=== PATIENT | female | born 1980 | race Caucasian/White ===

== ENCOUNTER 2019-09-20 01:23 | Emergency (ER) | payer OTHER ==
[2019-09-20 01:27] VITALS: TEMP 98.3; BMI 42.7
--- NOTE | 2019-09-20 01:34 | PDOC ---
History of Present Illness - General Chief Complaint: Chest Pain Stated Complaint: ABD, BACK AND CHEST PAIN Time Seen by Provider: 09/20/19 01:33 - History of Present Illness Initial Comments: 09/20/19 01:50 39-year-old obese female complaining of chest and back pain, heaviness since earlier. Patient reports 3 similar episodes in the last week. Patient today took Gas-X advised by pharmacist with no significant improvement in pain. Patient also reports slight nausea. Denies heavy lifting, fever/chills, cough, shortness of breath. patient reports that 3 times she had pain is after eating food. No past medical history 09/20/19 02:26 Past History - Medical History Allergies/Adverse Reactions: Allergies Allergy/AdvReac Type Severity Reaction Status Date / Time shellfish derived Allergy Intermediate Difficulty Verified 09/20/19 01:27 Breathing Home Medications: Ambulatory Orders NK [No Known Home Medication] 09/20/19 Asthma: Yes Cancer: No Cardiac Disorders: No COPD: No Diabetes: No HTN: No Seizures: No Thyroid Disease: No - Reproductive History Spontaneous : 3 - Immunization History Td Vaccination: Yes TDAP Vaccination: Yes Immunization Up to Date: Yes - Psycho-Social/Smoking History Smoking Status: Yes Smoking History: Never smoked Have you smoked in the past 12 months: No Number of Cigarettes Smoked Daily: 0 - Substance Abuse Hx (Audit-C & DAST Scrn) How often the patient has a drink containing alcohol: Never Score: In Men: 4 or > Positive; In Women: 3 or > Positive: 0 Screen Result (Pos requires Nsg. Audit-10AR): Negative In the last yr the pt used illegal drug/Rx for NonMed reason: No Score: Yes response is considered Positive: 0 Screen Result (Positive result requires Nsg. DAST-10): Negative Review of Systems - Review of Systems Able to Perform ROS?: Yes Is the patient limited Chinese proficient: No Constitutional: No: Symptoms Reported, See HPI, Chills, Diaphoresis, Fever, Loss of Appetite, Malaise, Night Sweats, Weakness, Weight Stable, Unintentional Wgt. Loss, Unexplained wgt Loss, Other HEENTM: No: Symptoms Reported, See HPI, Eye Pain, Blurred Vision, Tearing, Recent change in vision, Double Vision, Cataracts, Ear Pain, Ocular Prothesis, Ear Discharge, Nose Pain, Nose Congestion, Tinnitus, Nose Bleeding, Hearing Loss, Throat Pain, Throat Swelling, Mouth Pain, Dental Problems, Difficulty Swallowing, Mouth Swelling, Other Respiratory: No: Symptoms reported, See HPI, Cough, Orthopnea, Shortness of Breath, SOB with Exertion, SOB at Rest, Stridor, Wheezing, Productive cough, Hemoptysis, Other Cardiac (ROS): Yes: Chest Pain. No: Symptoms Reported, See HPI, Edema, Irregular Heart Rate, Lightheadedness, Palpitations, Syncope, Chest Tightness, Other ABD/GI: Yes: Nausea *Physical Exam - Vital Signs Last Vital Signs Temp Pulse Resp BP Pulse Ox 98.3 F 82 18 139/78 99 09/20/19 01:24 09/20/19 01:24 09/20/19 01:24 09/20/19 01:09/20/19 01:24 - Physical Exam General Appearance: Yes: Appropriately Dressed Respiratory/Chest: positive: Chest Tender (mild reproducible pain), Lungs Clear, Normal Breath Sounds Cardiovascular: positive: Regular Rhythm, Regular Rate Gastrointestinal/Abdominal: positive: Normal Bowel Sounds, Tender (both upper abdominal tenderness), Soft Musculoskeletal: positive: Normal Inspection Extremity: positive: Normal Capillary Refill, Normal Inspection, Normal Range of Motion, Pelvis Stable Integumentary: positive: Normal Color, Dry, Warm Neurologic: positive: Fully Oriented, Alert, Normal Mood/Affect Heart Score/ECG Review - History History: Slightly suspicious - Electrocardiogram EKG: Normal - Risk Factors Risk Factors Heart Score: Yes Hx Obesity Based on the list above the patient has:: 1-2 risk factors - Troponin Troponin: </= normal limit - ECG Intrepretation Rhythm: Regular Rhythm Comment:: 09/20/19 04:22 NSR ED Treatment Course - LABORATORY CBC & Chemistry Diagram: 09/20/19 02:00 09/20/19 02:00 Medical Decision Making - Medical Decision Making 09/20/19 01:52 A: chest pain/ upper abdominal pain P: labs EKG chest xray aspirin 09/20/19 02:26 09/20/19 04:20 POCUS abdomen done by Dr. gutierrez/: no gall bladder thickening, no stones, CBD wnl. LFTS, lipase wnl. patient is feeling better after zofran. will do 2nd troponin 09/20/19 06:18 Discharge - Discharge Information Problems reviewed: Yes Clinical Impression/Diagnosis: Nausea Chest pain Qualifiers: Chest pain type: unspecified Qualified Code(s): R07.9 - Chest pain, unspecified Disposition: HOME - Follow up/Referral - Patient Discharge Instructions Patient Printed Discharge Instructions: DI for Atypical Chest Pain Additional Instructions: Avoid gas producing food. Drink plenty of fluids. Follow-up with your primary doctor. Return to the emergency room for any worsening symptoms - Post Discharge Activity Work/Back to School Note: Back to Work
[2019-09-20] MEDS ORDERED: ASPIRIN 81 MG CHEWABLE TABLETS PO ONE (01:42)
[2019-09-20] MEDS ORDERED: ASPIRIN 81 MG CHEWABLE TABLETS ONE (01:47)
--- NOTE | 2019-09-20 01:51 | PDOC ---
*Physical Exam - Vital Signs Last Vital Signs Temp Pulse Resp BP Pulse Ox 98.3 F 82 18 139/78 99 09/20/19 01:24 09/20/19 01:24 09/20/19 01:24 09/20/19 01:24 09/20/19 01:24 ED Treatment Course - LABORATORY CBC & Chemistry Diagram: 09/20/19 02:00 09/20/19 02:00 - Medications Given in the ED: ED Medications Discontinued Medications Generic Name Dose Route Start Last Admin Trade Name Gaudencio PRN Reason Stop Dose Admin Aspirin 162 mg 09/20/19 01:42 09/20/19 01:49 Asa - PO 09/20/19 01:43 162 mg ONCE ONE Administration Medical Decision Making - Medical Decision Making 09/20/19 01:51 Patient seen by the advanced practice provider under my supervision. Ancillary testing reviewed as necessary. I agree with plan as outlined by the advanced practice provider. Discharge - Discharge Information Problems reviewed: Yes Clinical Impression/Diagnosis: Nausea Chest pain Qualifiers: Chest pain type: unspecified Qualified Code(s): R07.9 - Chest pain, unspecified Disposition: HOME - Follow up/Referral - Patient Discharge Instructions Patient Printed Discharge Instructions: DI for Atypical Chest Pain Additional Instructions: Avoid gas producing food. Drink plenty of fluids. Follow-up with your primary doctor. Return to the emergency room for any worsening symptoms - Post Discharge Activity Work/Back to School Note: Back to Work
[2019-09-20] MEDS ORDERED: ONDANSETRON 4 MG/2 ML VIAL IVPUSH ONE (01:59)
[2019-09-20 02:19] LABS: BASO % 0.7 % (0-2.0); EOS % 3.8 % (0-4.5); HEMATOCRIT 40.3 % (32.4-45.2); HEMOGLOBIN 13.5 GM/dL (10.7-15.3); MCH 28.9 pg (25.7-33.7); MCHC 33.6 g/dl (32.0-36.0); MEAN CELL VOLUME 86.1 fl (80-96); MEAN PLT VOLUME 8.9 fl (7.5-11.1); MONO % 7.7 % (3.8-10.2); NEUT % 53.8 % (42.8-82.8); PLATELET COUNT 303 K/MM3 (134-434); RBC 4.68 M/mm3 (3.60-5.2); RDW 14.8 % (11.6-15.6); WHITE BLOOD COUNT 10.3 K/mm3 (4.0-10.0)
[2019-09-20 02:32] LABS: INR 1.03 (0.83-1.09); PROTHROMBIN TIME (PATIENT) 12.1 SEC (9.7-13.0)
[2019-09-20 02:34] LABS: ACTIVATED PTT 32.6 SECONDS (25.2-36.5)
[2019-09-20 02:46] LABS: ALBUMIN 3.8 g/dl (3.4-5.0); ALK PHOS 89 U/L (45-117); ANION GAP 7 MMOL/L (8-16); BILIRUBIN,TOTAL 0.3 mg/dL (0.2-1); BLOOD UREA NITROGEN 11.3 mg/dL (7-18); CALCIUM 9.4 mg/dL (8.5-10.1); CHLORIDE 104 mmol/L (98-107); CO2 29 mmol/L (21-32); GLUCOSE,RANDOM 109 mg/dL (74-106); SGOT/AST 20 U/L (15-37); SGPT/ALT 23 U/L (13-61); SODIUM 140 mmol/L (136-145); TOT PROT 7.2 g/dl (6.4-8.2)
[2019-09-20 03:06] LABS: URINE APPEARANCE CLEAR; URINE BILIRUBIN NEGATIVE (NEGATIVE); URINE COLOR YELLOW; URINE GLUCOSE (UA) NEGATIVE (NEGATIVE); URINE KETONE NEGATIVE (NEGATIVE); URINE LEUK ESTERASE NEGATIVE (NEGATIVE); URINE NITRITE NEGATIVE (NEGATIVE); URINE PROTEIN NEGATIVE (NEGATIVE); URINE UROBILINOGEN 0.2 mg/dL (0.2-1.0)
[2019-09-20 03:19] LABS: LIPASE 190 U/L (73-393)
[2019-09-20 05:12] VITALS: BP 109/57; PULSE 68
--- NOTE | 2019-09-20 10:39 | EKG ---
Test Reason : Blood Pressure : / mmHG Vent. Rate : 067 BPM Atrial Rate : 067 BPM P-R Int : 174 ms QRS Dur : 090 ms QT Int : 410 ms P-R-T Axes : 039 059 033 degrees QTc Int : 433 ms NORMAL SINUS RHYTHM NORMAL ECG WHEN COMPARED WITH ECG OF 20-SEP-2019 02:01, NO SIGNIFICANT CHANGE WAS FOUND Confirmed by MD Ruelas Daniel ([id number]) on 09/20/2019 10:38:49 AM Referred By: Confirmed By:Javi Ruelas MD
== END 2019-09-20 06:02 | disposition home or self-care (01) ==
LOC: JER 01:23
PROC: 3E033GC Introduction of Other Therapeutic Substance into Peripheral Vein, Percutaneous Approach (ICD-10-PCS; principal; 2019-09-20)
DX: R07.9 Chest pain, unspecified (principal); R11.0 Nausea
CPT/HCPCS: 36415; 71046-TC-FY; 80053; 81003; 82550; 82553; 83690; 83735; 84484; 84703; 85025; 85610; 85730; 93005; 93010; 99285-25

== ENCOUNTER 2020-01-26 16:09 | Inpatient (IN) | payer OTHER ==
[2020-01-26] MEDS ORDERED: SODIUM CHLORIDE 0.9% 500 ML INFUS.BAG IV ONE (17:54)
[2020-01-26] MEDS ORDERED: morphine CARPU-JECT 4 MG/1 ML DISP.SYRIN IVPUSH ONE ×2 (17:54→22:36)
[2020-01-26] MEDS ORDERED: METOCLOPRAMIDE HCL INJECTION 10 MG/2 ML VIAL IVPUSH ONE (17:54)
[2020-01-26 18:31] LABS: EPI CELLS 8 /uL (0-25.1); HCG,QUALITATIVE URINE Negative; HYALINE CASTS 0 /uL (0-3.1); URINE APPEARANCE CLEAR; URINE BACTERIA 190 /uL (0-1359); URINE BILIRUBIN NEGATIVE (NEGATIVE); URINE COLOR YELLOW; URINE GLUCOSE (UA) NEGATIVE (NEGATIVE); URINE KETONE NEGATIVE (NEGATIVE); URINE LEUK ESTERASE NEGATIVE (NEGATIVE); URINE NITRITE NEGATIVE (NEGATIVE); URINE PROTEIN NEGATIVE (NEGATIVE); URINE RBC 192 /uL (0-23.9); URINE UROBILINOGEN 0.2 mg/dL (0.2-1.0); URINE WBC 6 /uL (0-25.8)
[2020-01-26] MEDS ORDERED: METOCLOPRAMIDE HCL INJECTION 10 MG/2 ML VIAL ONE (18:36)
[2020-01-26] MEDS ORDERED: morphine SULFATE 4 MG/ML VIAL ONE (18:36)
[2020-01-26 19:13] LABS: BASO % 0.2 % (0-2.0); EOS % 2.6 % (0-4.5); HEMATOCRIT 39.5 % (32.4-45.2); HEMOGLOBIN 13.3 GM/dL (10.7-15.3); LYMPH % 19.1 % (8-40); MCH 28.9 pg (25.7-33.7); MCHC 33.6 g/dl (32.0-36.0); MEAN CELL VOLUME 85.9 fl (80-96); MEAN PLT VOLUME 9.1 fl (7.5-11.1); MONO % 6.6 % (3.8-10.2); NEUT % 71.5 % (42.8-82.8); PLATELET COUNT 326 K/MM3 (134-434); RBC 4.59 M/mm3 (3.60-5.2); RDW 14.2 % (11.6-15.6); WHITE BLOOD COUNT 11.8 K/mm3 (4.0-10.0)
[2020-01-26 19:35] LABS: CHLORIDE 105 mmol/L (98-107); POTASSIUM 4.2 mmol/L (3.5-5.1); SODIUM 140 mmol/L (136-145)
[2020-01-26 19:37] LABS: ALBUMIN 3.7 g/dl (3.4-5.0); ANION GAP 5 MMOL/L (8-16); BLOOD UREA NITROGEN 11.4 mg/dL (7-18); CO2 29 mmol/L (21-32); GLUCOSE,RANDOM 84 mg/dL (74-106); LIPASE 150 U/L (73-393)
[2020-01-26 19:40] LABS: CREATININE 0.9 mg/dL (0.55-1.3); SGOT/AST 16 U/L (15-37); SGPT/ALT 22 U/L (13-61)
[2020-01-26 19:42] LABS: BILIRUBIN,TOTAL 0.4 mg/dL (0.2-1); TOT PROT 7.2 g/dl (6.4-8.2)
[2020-01-26 19:43] LABS: ALK PHOS 75 U/L (45-117)
[2020-01-26] MEDS ORDERED: CEFTRIAXONE 1,000 MG in DEXTROSE 5%-WATER - 50 ML IVPB ONE (22:00)
[2020-01-26] MEDS ORDERED: CEFTRIAXONE 1 GM/50 ML BAG ONE (22:09)
[2020-01-26] MEDS ORDERED: MORPHINE SULFATE 2 MG/ML VIAL ONE (22:46)
[2020-01-27] MEDS ORDERED: morphine SULFATE 4 MG/ML VIAL IVPUSH PRN (00:29)
[2020-01-27] MEDS ORDERED: LACTATED RINGERS SOLUTION 1,000 ML IV SCH (00:30)
[2020-01-27] MEDS: SODIUM CHLORIDE 1,000 ML IV SCH (00:47)
[2020-01-27] MEDS ORDERED: METOCLOPRAMIDE HCL INJECTION 10 MG/2 ML VIAL IVPUSH PRN (02:00)
[2020-01-27] MEDS ORDERED: MORPHINE SULFATE 2 MG/ML VIAL ONE (04:57)
[2020-01-27] MEDS: MORPHINE SULFATE 2 MG/ML VIAL IVPUSH PRN (05:00)
[2020-01-27 06:12] LABS: HEMATOCRIT 37.7 % (32.4-45.2); HEMOGLOBIN 12.6 GM/dL (10.7-15.3); MCH 28.4 pg (25.7-33.7); MCHC 33.4 g/dl (32.0-36.0); MEAN PLT VOLUME 8.4 fl (7.5-11.1); PLATELET COUNT 287 K/MM3 (134-434); RBC 4.43 M/mm3 (3.60-5.2); RDW 14.2 % (11.6-15.6); WHITE BLOOD COUNT 9.9 K/mm3 (4.0-10.0)
[2020-01-27 06:46] LABS: POTASSIUM 3.9 mmol/L (3.5-5.1)
[2020-01-27 06:48] LABS: CALCIUM 8.3 mg/dL (8.5-10.1)
[2020-01-27 06:49] LABS: ALBUMIN 3.2 g/dl (3.4-5.0); BLOOD UREA NITROGEN 8.1 mg/dL (7-18); MAGNESIUM 1.9 mg/dL (1.8-2.4)
[2020-01-27 06:51] LABS: CREATININE 0.8 mg/dL (0.55-1.3)
[2020-01-27 06:52] LABS: PHOSPHOROUS 3.4 mg/dL (2.5-4.9)
[2020-01-27 06:53] LABS: BILIRUBIN,TOTAL 0.5 mg/dL (0.2-1); TOT PROT 6.4 g/dl (6.4-8.2)
[2020-01-27] MEDS ORDERED: ENOXAPARIN NA (PORCINE) 40 MG/0.4 ML DISP.SYRIN SQ ONE (08:46)
[2020-01-27] MEDS: ENOXAPARIN NA (PORCINE) 40 MG/0.4 ML DISP.SYRIN SQ SCH (09:32)
[2020-01-27 12:59] LABS: POTASSIUM 3.8 mmol/L (3.5-5.1)
[2020-01-27 13:01] LABS: BLOOD UREA NITROGEN 7.8 mg/dL (7-18)
[2020-01-27 13:04] LABS: CREATININE 0.7 mg/dL (0.55-1.3)
[2020-01-27] MEDS ORDERED: cefTRIAXone SODIUM 1 GM VIAL ONE (18:44)
[2020-01-27] MEDS ORDERED: DEXTROSE 5%-WATER - 50 ML IVPB ONE (18:45)
[2020-01-27] MEDS: CEFTRIAXONE 1 GM in DEXTROSE 5%-WATER - 50 ML IVPB SCH (18:48)
[2020-01-27] MEDS: MONTELUKAST NA 10 MG TABLET PO SCH (21:10)
[2020-01-28] MEDS: MORPHINE SULFATE 2 MG/ML VIAL IVPUSH PRN ×2 (00:01→22:09)
[2020-01-28] MEDS: SODIUM CHLORIDE 1,000 ML IV SCH ×2 (00:30→22:12)
[2020-01-28 07:14] LABS: BASO % 0.4 % (0-2.0); EOS % 2.7 % (0-4.5); HEMATOCRIT 36.5 % (32.4-45.2); HEMOGLOBIN 12.3 GM/dL (10.7-15.3); LYMPH % 20.2 % (8-40); MCH 28.6 pg (25.7-33.7); MCHC 33.9 g/dl (32.0-36.0); MEAN CELL VOLUME 84.6 fl (80-96); MEAN PLT VOLUME 8.7 fl (7.5-11.1); MONO % 8.2 % (3.8-10.2); NEUT % 68.5 % (42.8-82.8); PLATELET COUNT 311 K/MM3 (134-434); RBC 4.31 M/mm3 (3.60-5.2); RDW 13.8 % (11.6-15.6); WHITE BLOOD COUNT 9.8 K/mm3 (4.0-10.0)
[2020-01-28] MEDS ORDERED: cefTRIAXone SODIUM 1 GM VIAL ONE (09:30)
[2020-01-28] MEDS ORDERED: DEXTROSE 5%-WATER - 50 ML IVPB ONE (09:32)
[2020-01-28] MEDS: CEFTRIAXONE 1 GM in DEXTROSE 5%-WATER - 50 ML IVPB SCH (09:34)
[2020-01-28] MEDS: ENOXAPARIN NA (PORCINE) 40 MG/0.4 ML DISP.SYRIN SQ SCH (09:34)
[2020-01-28] MEDS ORDERED: SODIUM CHLORIDE NASAL SPRAY 44 ML BOTTLE NS ONE (19:40)
[2020-01-28] MEDS: MONTELUKAST NA 10 MG TABLET PO SCH (22:11)
[2020-01-29 06:58] LABS: BASO % 0.4 % (0-2.0); EOS % 2.7 % (0-4.5); HEMATOCRIT 36.6 % (32.4-45.2); HEMOGLOBIN 12.3 GM/dL (10.7-15.3); LYMPH % 21.9 % (8-40); MCH 28.3 pg (25.7-33.7); MCHC 33.6 g/dl (32.0-36.0); MEAN CELL VOLUME 84.4 fl (80-96); MEAN PLT VOLUME 8.5 fl (7.5-11.1); MONO % 7.7 % (3.8-10.2); NEUT % 67.3 % (42.8-82.8); PLATELET COUNT 335 K/MM3 (134-434); RBC 4.33 M/mm3 (3.60-5.2); RDW 13.6 % (11.6-15.6); WHITE BLOOD COUNT 9.2 K/mm3 (4.0-10.0)
[2020-01-29] MEDS ORDERED: cefTRIAXone SODIUM 1 GM VIAL ONE (08:55)
[2020-01-29] MEDS ORDERED: DEXTROSE 5%-WATER - 50 ML IVPB ONE (08:56)
[2020-01-29] MEDS: CEFTRIAXONE 1 GM in DEXTROSE 5%-WATER - 50 ML IVPB SCH (09:28)
[2020-01-29] MEDS ORDERED: PROPOFOL 20 ML ONE ×2 (14:13)
[2020-01-29] MEDS ORDERED: SUCCINYLCHOLINE CHLORIDE 200 MG/10 ML SYRINGE ONE (14:13)
[2020-01-29] MEDS ORDERED: MIDAZOLAM HCL 2 MG/2 ML SINGLE DOSE VIAL ONE (14:13)
[2020-01-29] MEDS ORDERED: fentaNYL CITRATE 250 MCG/5 ML VIAL ONE (14:13)
[2020-01-29] MEDS ORDERED: ROCURONIUM BROMIDE 50 MG/5 ML SYRINGE ONE ×2 (14:13→16:15)
[2020-01-29] MEDS ORDERED: DEXAMETHASONE SOD PHOSPHATE 4 MG/1 ML VIAL ONE (15:03)
[2020-01-29] MEDS ORDERED: BUPIVACAINE HCL/PF 0.5% (5 MG/ML) 30 ML VIAL IJ ONE (15:10)
[2020-01-29] MEDS: ENOXAPARIN NA (PORCINE) 40 MG/0.4 ML DISP.SYRIN SQ SCH (15:27)
[2020-01-29 15:31] VITALS: BMI 44.2
[2020-01-29] MEDS ORDERED: METOPROLOL TARTRATE 5 MG/5 ML VIAL ONE (16:23)
[2020-01-29] MEDS ORDERED: ONDANSETRON 4 MG/2 ML VIAL IVPUSH PRN ×2 (17:02→17:12)
[2020-01-29] MEDS ORDERED: NEOSTIGMINE METHYLSULFATE 0.5 MG/ML - 10 ML MDV ONE (17:04)
[2020-01-29] MEDS ORDERED: LACTATED RINGERS SOLUTION 1,000 ML IV SCH (17:15)
[2020-01-29] MEDS ORDERED: oxyCODONE HCL 5 MG TABLET PO PRN (17:29)
[2020-01-29] MEDS ORDERED: ACETAMINOPHEN INJECTION 100 ML IVPB ONE (17:40)
[2020-01-29] MEDS: ACETAMINOPHEN 1000 MG/100 ML VIAL (NON FORMULARY) IVPB PRN (17:45)
[2020-01-29] MEDS: SODIUM CHLORIDE 1,000 ML IV SCH ×3 (17:45→21:14)
[2020-01-29] MEDS: MORPHINE SULFATE 2 MG/ML VIAL IVPUSH PRN (21:31)
[2020-01-29] MEDS: MONTELUKAST NA 10 MG TABLET PO SCH (21:31)
[2020-01-30] MEDS: MORPHINE SULFATE 2 MG/ML VIAL IVPUSH PRN ×2 (04:42→10:07)
[2020-01-30] MEDS: SODIUM CHLORIDE 1,000 ML IV SCH (06:16)
[2020-01-30 08:52] LABS: BASO % 0.1 % (0-2.0); HEMATOCRIT 35.2 % (32.4-45.2); LYMPH % 7.5 % (8-40); MCH 28.5 pg (25.7-33.7); MEAN CELL VOLUME 83.9 fl (80-96); MEAN PLT VOLUME 8.4 fl (7.5-11.1); MONO % 5.3 % (3.8-10.2); NEUT % 87.1 % (42.8-82.8); PLATELET COUNT 358 K/MM3 (134-434); RDW 13.7 % (11.6-15.6); WHITE BLOOD COUNT 12.1 K/mm3 (4.0-10.0)
[2020-01-30] MEDS ORDERED: cefTRIAXone SODIUM 1 GM VIAL ONE (09:08)
[2020-01-30] MEDS ORDERED: DEXTROSE 5%-WATER - 50 ML IVPB ONE (09:08)
[2020-01-30 09:14] LABS: POTASSIUM 4.2 mmol/L (3.5-5.1)
[2020-01-30 09:17] LABS: BLOOD UREA NITROGEN 7.4 mg/dL (7-18); CALCIUM 8.4 mg/dL (8.5-10.1)
[2020-01-30 09:21] LABS: CREATININE 0.7 mg/dL (0.55-1.3); PHOSPHOROUS 2.8 mg/dL (2.5-4.9)
[2020-01-30] MEDS ORDERED: CEFTRIAXONE 1 GM in DEXTROSE 5%-WATER - 50 ML IVPB SCH (09:30)
[2020-01-30] MEDS: ENOXAPARIN NA (PORCINE) 40 MG/0.4 ML DISP.SYRIN SQ SCH (09:35)
[2020-01-30] MEDS: ACETAMINOPHEN 1000 MG/100 ML VIAL (NON FORMULARY) IVPB PRN (21:03)
[2020-01-30] MEDS: MONTELUKAST NA 10 MG TABLET PO SCH (21:22)
[2020-01-31 08:02] LABS: HEMATOCRIT 34.1 % (32.4-45.2); HEMOGLOBIN 11.5 GM/dL (10.7-15.3); MCHC 33.8 g/dl (32.0-36.0); MEAN CELL VOLUME 85.8 fl (80-96); MEAN PLT VOLUME 8.6 fl (7.5-11.1); PLATELET COUNT 350 K/MM3 (134-434); RBC 3.97 M/mm3 (3.60-5.2); RDW 14.2 % (11.6-15.6); WHITE BLOOD COUNT 10.1 K/mm3 (4.0-10.0)
[2020-01-31 08:19] LABS: POTASSIUM 3.9 mmol/L (3.5-5.1)
[2020-01-31 08:40] LABS: ALBUMIN 2.9 g/dl (3.4-5.0)
[2020-01-31 08:41] LABS: BLOOD UREA NITROGEN 10.8 mg/dL (7-18)
[2020-01-31 08:42] LABS: CALCIUM 8.6 mg/dL (8.5-10.1)
[2020-01-31 08:43] LABS: BILIRUBIN,TOTAL 0.3 mg/dL (0.2-1); CREATININE 0.7 mg/dL (0.55-1.3); PHOSPHOROUS 3.4 mg/dL (2.5-4.9)
[2020-01-31] MEDS: ACETAMINOPHEN 1000 MG/100 ML VIAL (NON FORMULARY) IVPB PRN (09:30)
[2020-01-31] MEDS: ENOXAPARIN NA (PORCINE) 40 MG/0.4 ML DISP.SYRIN SQ SCH (09:31)
[2020-01-31 10:23] VITALS: BP 123/71; PULSE 97; TEMP 97.9
== END 2020-01-31 12:56 | disposition home or self-care (01) | DRG 263 ==
LOC: JER 16:09 → JERBED 22:12 → J7W 01-27 11:50 → J5S 01-29 20:43
PROVIDERS: ADMIT Family Medicine; ATTEND Internal Medicine
PROC: 0FT44ZZ Resection of Gallbladder, Percutaneous Endoscopic Approach (ICD-10-PCS; principal; 2020-01-29 15:08)
DX: K80.12 Calculus of gallbladder with acute and chronic cholecystitis without obstruction (principal); Z68.44 Body mass index [BMI] 60.0-69.9, adult; E66.9 Obesity, unspecified; D72.829 Elevated white blood cell count, unspecified; K82.1 Hydrops of gallbladder; J45.909 Unspecified asthma, uncomplicated; R10.11 Right upper quadrant pain
CPT/HCPCS: 36415; 71045-TC-FY; 76705-TC; 80048; 80053; 81003; 83690; 83735; 84100; 84484; 84703; 85025; 85027; 86850; 86900; 86901; 88304-TC; 93005; 93010; 93306-TC; 94760; 99285-25; C9803; J0131; U0003

== ENCOUNTER 2021-12-25 03:36 | Emergency (ER) | payer OTHER ==
[2021-12-25 03:42] VITALS: BP 128/84; PULSE 90; RESP 20; TEMP 97.8; BMI 44.7
[2021-12-25] MEDS ORDERED: ALBUTEROL SO4 2.5/IPRATROPIUM 0.5 INH SOL 3 ML VIAL.NEB. NEB ONE ×3 (04:02→04:15)
[2021-12-25] MEDS ORDERED: methylPREDNISolone NA SUCC 125 MG/2 ML VIAL IVPB ONE (04:02)
[2021-12-25] MEDS ORDERED: methylPREDNISolone NA SUCC 125 MG/2 ML VIAL ONE (04:13)
[2021-12-25 04:51] LABS: HEMOGLOBIN 13.8 GM/dL (10.7-15.3); MCH 28.7 pg (25.7-33.7); MCHC 33.7 g/dl (32.0-36.0); MEAN CELL VOLUME 85.1 fl (80-96); MEAN PLT VOLUME 8.5 fl (7.5-11.1); PLATELET COUNT 359 10^3/uL (134-434); RBC 4.82 M/mm3 (3.60-5.2); RDW 14.2 % (11.6-15.6); WHITE BLOOD COUNT 10.8 K/mm3 (4.0-10.0)
[2021-12-25 05:03] LABS: CHLORIDE 106 mmol/L (98-107); SODIUM 140 mmol/L (136-145)
[2021-12-25 05:05] LABS: ALBUMIN 3.6 g/dl (3.4-5.0); ANION GAP 9 MMOL/L (8-16); BLOOD UREA NITROGEN 12.5 mg/dL (7-18); CO2 24 mmol/L (21-32); GLUCOSE,RANDOM 114 mg/dL (74-106)
[2021-12-25 05:07] LABS: SGOT/AST 31 U/L (15-37); SGPT/ALT 37 U/L (13-61)
[2021-12-25 05:09] LABS: BILIRUBIN,TOTAL 0.4 mg/dL (0.2-1); TOT PROT 7.4 g/dl (6.4-8.2)
[2021-12-25 05:11] LABS: ALK PHOS 75 U/L (45-117)
== END 2021-12-25 06:10 | disposition home or self-care (01) ==
LOC: JER 03:36
PROC: 3E0F7GC Introduction of Other Therapeutic Substance into Respiratory Tract, Via Natural or Artificial Opening (ICD-10-PCS; principal; 2021-12-25)
PROC: 3E033GC Introduction of Other Therapeutic Substance into Peripheral Vein, Percutaneous Approach (ICD-10-PCS; 2021-12-25)
DX: J45.991 Cough variant asthma (principal)
CPT/HCPCS: 36415; 71046-TC-FY; 80053; 84484; 85027; 93005; 93010; 99285-25

== ENCOUNTER 2022-04-11 11:51 | Emergency (ER) | payer OTHER ==
[2022-04-11 12:01] VITALS: TEMP 98.2; BMI 44.2
[2022-04-11] MEDS ORDERED: FAMOTIDINE 20 MG/50 ML IVPB 20 MG/50 ML MG IVPB ONE ×2 (13:06→13:25)
[2022-04-11] MEDS ORDERED: SODIUM CHLORIDE 0.9% 500 ML INFUS.BAG IV ONE (13:06)
[2022-04-11] MEDS ORDERED: KETOROLAC TROMETHAMINE 30 MG/1 ML VIAL IVPUSH ONE (13:06)
[2022-04-11] MEDS ORDERED: ONDANSETRON 4 MG/2 ML VIAL IVPUSH ONE (13:06)
[2022-04-11] MEDS ORDERED: KETOROLAC TROMETHAMINE 30 MG/1 ML VIAL ONE (13:25)
[2022-04-11] MEDS ORDERED: ONDANSETRON 4 MG/2 ML VIAL ONE (13:25)
[2022-04-11 13:30] LABS: HEMATOCRIT 45.2 % (32.4-45.2); MCH 28.3 pg (25.7-33.7); MCHC 33.1 g/dl (32.0-36.0); MEAN CELL VOLUME 85.3 fl (80-96); MEAN PLT VOLUME 8.3 fl (7.5-11.1); PLATELET COUNT 427 10^3/uL (134-434); RBC 5.29 M/mm3 (3.60-5.2); RDW 14.7 % (11.6-15.6); WHITE BLOOD COUNT 14.8 K/mm3 (4.0-10.0)
[2022-04-11 13:53] LABS: ANISOCYTOSIS 1+; MACROCYTOSIS 0
[2022-04-11 13:57] LABS: CALCIUM 9.3 mg/dL (8.5-10.1)
[2022-04-11 13:59] LABS: ALBUMIN 3.9 g/dl (3.4-5.0); BLOOD UREA NITROGEN 14.5 mg/dL (7-18)
[2022-04-11 14:01] LABS: CREATININE 0.9 mg/dL (0.55-1.3)
[2022-04-11 14:03] LABS: TOT PROT 8.1 g/dl (6.4-8.2)
[2022-04-11 14:04] LABS: BILIRUBIN,TOTAL 0.8 mg/dL (0.2-1)
[2022-04-11 15:03] LABS: HCG,QUALITATIVE URINE Negative
[2022-04-11 15:04] LABS: EPI CELLS >36 /uL (0-25.1); HYALINE CASTS 2 /uL (0-3.1); PH,URINE 5.5 (5.0-8.0); URINE APPEARANCE CLOUDY; URINE BACTERIA 53 /uL (0-1359); URINE BILIRUBIN NEGATIVE (NEGATIVE); URINE COLOR DK YELLOW; URINE GLUCOSE (UA) NEGATIVE (NEGATIVE); URINE KETONE 1+ (NEGATIVE); URINE LEUK ESTERASE NEGATIVE (NEGATIVE); URINE NITRITE NEGATIVE (NEGATIVE); URINE PROTEIN 1+ (NEGATIVE); URINE RBC 36 /uL (0-23.9); URINE UROBILINOGEN 0.2 mg/dL (0.2-1.0); URINE WBC 7 /uL (0-25.8)
[2022-04-11 16:23] VITALS: BP 122/80; PULSE 90; RESP 16
== END 2022-04-11 16:24 | disposition home or self-care (01) ==
LOC: JER 11:51
PROC: 3E033GC Introduction of Other Therapeutic Substance into Peripheral Vein, Percutaneous Approach (ICD-10-PCS; principal; 2022-04-11)
PROC: 3E0333Z Introduction of Anti-inflammatory into Peripheral Vein, Percutaneous Approach (ICD-10-PCS; 2022-04-11)
PROC: 3E033GC Introduction of Other Therapeutic Substance into Peripheral Vein, Percutaneous Approach (ICD-10-PCS; 2022-04-11)
DX: R11.2 Nausea with vomiting, unspecified (principal); R19.7 Diarrhea, unspecified
CPT/HCPCS: 36415; 80053; 81003; 83690; 84703; 85025; 99284-25

== ENCOUNTER 2022-10-12 20:07 | Emergency (ER) | payer OTHER ==
[2022-10-12 20:17] VITALS: BP 130/68; PULSE 91; RESP 18; TEMP 98.8; BMI 41.5
[2022-10-12] MEDS ORDERED: ALBUTEROL SO4 2.5/IPRATROPIUM 0.5 INH SOL 3 ML VIAL.NEB. NEB ONE ×4 (21:02→22:27)
[2022-10-12] MEDS ORDERED: predniSONE 20 MG TABLET (UD) PO ONE (21:07)
[2022-10-12] MEDS ORDERED: predniSONE 10 MG TABLET (UD) ONE (21:12)
[2022-10-12] MEDS ORDERED: predniSONE 20 MG TABLET (UD) ONE (21:12)
== END 2022-10-12 22:44 | disposition home or self-care (01) ==
LOC: JER 20:07
PROC: 3E0F7GC Introduction of Other Therapeutic Substance into Respiratory Tract, Via Natural or Artificial Opening (ICD-10-PCS; principal; 2022-10-12)
PROC: 3E0F7GC Introduction of Other Therapeutic Substance into Respiratory Tract, Via Natural or Artificial Opening (ICD-10-PCS; 2022-10-12)
DX: J45.901 Unspecified asthma with (acute) exacerbation (principal); R07.89 Other chest pain; R05.9 Cough, unspecified; Z20.822 Contact with and (suspected) exposure to COVID-19
CPT/HCPCS: 0241U-QW; 71046-TC-FY; 99284-25